=== PATIENT | male | born 1985 | race Caucasian/White ===

== ENCOUNTER 2017-11-22 10:44 | Emergency (ER) | payer MEDICAID ==
[~2017-11-22] VITALS: Ht 180.3 cm; Wt 83.0 kg
[2017-11-22 10:55] VITALS: BP 148/70; PULSE 76; RESP 16; TEMP 98.7; O2SAT 98
[2017-11-22] MEDS ORDERED: diphenhydrAMINE HCL 50 MG/ML VIAL IV PUSH ONE (11:30)
[2017-11-22] MEDS ORDERED: SODIUM CHLOR 0.9% 1000 ML INJ 1,000 ML IV ONE (11:30)
[2017-11-22] MEDS ORDERED: PROCHLORPERAZINE INJ 10 MG/2 ML VIAL IV PUSH ONE (11:30)
[2017-11-22] MEDS ORDERED: DICY10 PO (11:43)
[2017-11-22] MEDS ORDERED: ZOFR4TAB PO (11:43)
--- NOTE | 2017-11-22 11:43 | PD ---
HPI . Abdominal pain Chief Complaint: GI Complaint Time Seen by Provider: 11:21 Travel History International Travel<30 days: No Contact w/Intl Traveler<30days: No Traveled to known affect area: No History of Present Illness HPI This patient presents complaining with diffuse abdominal pain. Onset was this morning. It is getting progressively worse. He describes a crampy pain which he now rates 10/10. He has had some associated nausea and vomiting. He states that his emesis is just saliva. He denies diarrhea. He denies fever. His girlfriend was ill with a similar illness about 2 days ago. FOR[facility], [facility] Past Medical History Medical History: Denies Significant Hx Diminished Hearing: No Influenza Vaccination: No Past Surgical History Surgical History: No Previous Surgery Social History Alcohol Use: Yes Tobacco Use: Yes Allergies-Medications (Allergen,Severity, Reaction): Coded Allergies: No Known Allergies (Unverified , 11/22/17) Reported Meds & Prescriptions Reported Meds & Active Scripts Active Zofran (Ondansetron HCl) 4 Mg Tab 4 Mg PO Q6HR PRN Bentyl (Dicyclomine HCl) 10 Mg Cap 20 Mg PO QID Review of Systems Except as stated in HPI: all other systems reviewed are Neg Physical Exam Narrative GENERAL: Awake and alert. He was having dry heaves on arrival. SKIN: warm/dry. HEAD: Normocephalic. Atraumatic. EYES: Pupils equal and round. Extraocular movements are intact. ENT: Mucous membranes pink and slightly dry. NECK: Supple. Full range of motion without pain.. CARDIOVASCULAR: Regular rate and rhythm. Heart sounds normal. RESPIRATORY: No accessory muscle use. Clear to auscultation. Breath sounds equal bilaterally. GASTROINTESTINAL: Abdomen soft. Nontender. Bowel sounds present. Nondistended. MUSCULOSKELETAL: No obvious deformities. Normal muscle tone. NEUROLOGICAL: Awake and alert. No obvious cranial nerve deficits. Motor grossly within normal limits. Normal speech. PSYCHIATRIC: Appropriate mood and affect; insight and judgment normal. Data Data Last Documented VS Vital Signs Date Time Temp Pulse Resp B/P (MAP) Pulse Ox O2 Delivery O2 Flow Rate FiO2 11/22/17 10:55 98.7 76 16 148/70 (96) 98 Orders Orders ^ Saline Lock (11/22/17 11:22) Diphenhydramine Inj (Benadryl Inj) (11/22/17 11:30) Prochlorperazine Inj (Compazine Inj) (11/22/17 11:30) Sodium Chlor 0.9% 1000 Ml Inj (Ns 1000 M (11/22/17 11:30) MDM Medical Decision Making Medical Screen Exam Complete: Yes Emergency Medical Condition: Yes Differential Diagnosis Differential diagnosis of abdominal pain includes but is not limited to gastritis, pancreatitis, hepatitis, gastroenteritis, constipation, urinary retention, peptic ulcer disease, diverticulitis or appendicitis Narrative Course This patient presents with abdominal pain followed by nausea and vomiting. He has a benign abdominal exam. His girlfriend was ill with the same thing 2 days ago. His most likely diagnosis is viral gastroenteritis. He will be treated with IV fluids and IV Compazine and Benadryl. He will then be reassessed. The patient is now resting comfortably. He will be discharged following his fluid bolus. Diagnosis Primary Impression: Abdominal pain Qualified Codes: R10.84 - Generalized abdominal pain Additional Impression: Vomiting Qualified Codes: R11.2 - Nausea with vomiting, unspecified Patient Instructions: Gastroenteritis (DC), General Instructions Med/Other Pt SpecificInfo: Prescription(s) given Scripts Ondansetron (Zofran) 4 Mg Tab 4 MG PO Q6HR Y for NAUSEA OR VOMITING, #10 TAB 0 Refills Prov: Pilar Styles MD 11/22/17 Dicyclomine (Bentyl) 10 Mg Cap 20 MG PO QID for Bowel Management, #20 CAP 0 Refills Prov: Pilar Styles MD 11/22/17 Disposition: 01 DISCHARGE HOME Condition: Stable Pilar Styles MD Nov 22, 2017 11:43
[2017-11-22 13:29] VITALS: BP 120/88
== END 2017-11-22 13:30 | disposition home or self-care (01) ==
LOC: PHED 10:44
DX: R10.84 Generalized abdominal pain (principal); R11.2 Nausea with vomiting, unspecified; Z72.0 Tobacco use
CPT/HCPCS: 96361; 96374; 96375; 99284; J0780; J1200; J7030